=== PATIENT | male | born 1975 | race Caucasian/White ===

== ENCOUNTER 2018-07-05 12:45 | Inpatient (IN) | payer BC, MEDICAID ==
[~2018-07-05] VITALS: Ht 152.4 cm; Wt 90.7 kg
[2018-07-05] MEDS ORDERED: FENTANYL PF 100 MCG/2ML ONE (13:03)
[2018-07-05] MEDS ORDERED: VECURONIUM 10 MG ONE (13:03)
[2018-07-05] MEDS ORDERED: SODIUM CHLORIDE 0.9% 1,000 ML IV SCH (13:12)
[2018-07-05] MEDS ORDERED: POLYETHYLENE GLYCOL 17 GM PACKET PO PRN (13:30)
[2018-07-05] MEDS ORDERED: NOREPINEPHRINE 4 MG in SODIUM CHLORIDE 0.9% 246 ML IV PRN ×2 (13:30→14:00)
[2018-07-05] MEDS ORDERED: VANCOMYCIN PER PHARMACY MC PRN (13:30)
[2018-07-05] MEDS ORDERED: VASOPRESSIN 100 UNIT in SODIUM CHLORIDE 0.9% 495 ML IV PRN (13:30)
[2018-07-05] MEDS ORDERED: PLEASE ENTER HEIGHT AND WEIGHT MC SCH (13:30)
[2018-07-05] MEDS ORDERED: SODIUM CHLORIDE FLUSH 10ML SYR IVF ONE (13:30)
[2018-07-05] MEDS ORDERED: PIPERACILLIN/TAZO/PMX 3.375GM 50 ML IV SCH (13:30)
[2018-07-05] MEDS ORDERED: ONDANSETRON 2MG/ML, 2ML IVPush PRN (13:30)
[2018-07-05] MEDS ORDERED: PLEASE ENTER ALLERGIES MC SCH (13:30)
[2018-07-05] MEDS ORDERED: DOCUSATE 100 MG CAPSULE PO PRN (13:30)
[2018-07-05] MEDS ORDERED: SODIUM CHLORIDE 0.9% 1,000ML IVBOLUS ONE (13:30)
[2018-07-05 13:50] LABS: MEAN CORPUSCULAR HEMOGLOBIN 30.7 pg (27.5-34.5); MEAN CORPUSCULAR HGB CONC 33.1 g/dL (33.2-36.2); MEAN CORPUSCULAR VOLUME 92.6 fL (81-97); MEAN PLATELET VOLUME 7.6 fL (7.4-10.4); PLATELET COUNT 250 x10^3/uL (130-400); RED BLOOD COUNT 5.17 x10^6/uL (4.38-5.82); RED CELL DISTRIBUTION WIDTH 15.8 % (9.4-14.8)
[2018-07-05 13:51] LABS: MD YES
[2018-07-05 13:57] LABS: INTERNATIONAL NORMALIZED RATIO 1.07 (0.93-1.1); PROTHROMBIN TIME 11.3 Seconds (9.6-11.5)
[2018-07-05 14:02] LABS: ALANINE AMINOTRANSFERASE 52 U/L (12-78); ALBUMIN 2.6 g/dL (3.4-5.0); ANION GAP 19 mmol/L (5-15); CALCIUM 8.7 mg/dL (8.5-10.1); CHLORIDE 98 mmol/L (98-107); CREATININE 1.55 mg/dL (0.7-1.3)
[2018-07-05 14:06] LABS: ALKALINE PHOSPHATASE 90 U/L (45-117); BILIRUBIN,TOTAL 0.5 mg/dL (0.2-1.0); TROPONIN I 0.075 ng/mL (0.000-0.045)
[2018-07-05 14:28] LABS: ANISOCYTOSIS 1+; BAND#(MANUAL) 2.55 x10^3/uL; BANDS%(MANUAL) 6 % (0-7); LYMPHS% (MANUAL) 4 % (22-44); MONOS#(MANUAL) 0.85 x10^3/uL (0.3-2.7); MONOS% (MANUAL) 2 % (2-9); POLYCHROMASIA 1+; SEGS% (MANUAL) 88 % (42-75); TOXIC GRAN 1+
[2018-07-05 14:29] LABS: MICROSCOPIC INDICATED
[2018-07-05 14:30] LABS: <PLATELET ESTIMATE> ADEQUATE; <PLT MORPHOLOGY> NORMAL PLT MORPH
[2018-07-05] MEDS ORDERED: FENTANYL PF 100 MCG/2ML IVPush ONE ×2 (14:30→16:30)
[2018-07-05] MEDS ORDERED: VECURONIUM 10 MG IVPush ONE (14:30)
[2018-07-05 14:39] LABS: AMPHETAMINE SCREEN, URINE Negative (Negative); BARBITURATE SCREEN, URINE Negative (Negative); BENZODIAZEPINE SCREEN, URINE Negative (Negative); CANNABINOID SCREEN, URINE Negative (Negative); COCAINE SCREEN, URINE Negative (Negative); METHADONE SCREEN, URINE Negative (Negative); OPIATE SCREEN, URINE Negative (Negative)
[2018-07-05 14:40] LABS: RAPID INFLUENZA A Negative (Negative); RAPID INFLUENZA B Negative (Negative)
[2018-07-05 14:41] LABS: CULTURE INDICATED? YES
[2018-07-05] MEDS ORDERED: PIPERACILLIN/TAZO/PMX 3.375GM 50 ML ONE (15:13)
[2018-07-05] MEDS ORDERED: CEFTRIAXONE PMX 2GM/50ML 50 ML ONE (15:19)
[2018-07-05] MEDS ORDERED: CEFTRIAXONE PMX 2GM/50ML 50 ML IV SCH (15:30)
[2018-07-05] MEDS ORDERED: PROPOFOL 100 ML IV ONE (15:33)
[2018-07-05] MEDS ORDERED: SODIUM CHLORIDE 0.9% 1,000 ML IV ONE (16:26)
[2018-07-05] MEDS ORDERED: ACYCLOVIR 1,000 MG in SODIUM CHLORIDE 0.9% 250 ML IV SCH (16:30)
[2018-07-05] MEDS ORDERED: PROPOFOL 100 ML IV SCH (16:30)
[2018-07-05] MEDS ORDERED: LIDOCAINE-MPF 1%, 5ML ONE (16:41)
[2018-07-05] MEDS ORDERED: PROPOFOL 100 ML IV PRN (16:59)
[2018-07-05] MEDS ORDERED: LIDOCAINE-MPF 1%, 2ML ENDO PRN (17:00)
[2018-07-05] MEDS ORDERED: VANCOMYCIN 1,800 MG in SODIUM CHLORIDE 0.9% 250 ML IV SCH (17:00)
[2018-07-05] MEDS ORDERED: PHARMACOKINETIC CONSULTATION MC ONE (17:00)
[2018-07-05] MEDS ORDERED: PHARMACOKINETIC MONITORING MC PRN (17:00)
[2018-07-05] MEDS: ACYCLOVIR 1,000 MG in SODIUM CHLORIDE 0.9% 250 ML IV SCH (17:04)
[2018-07-05] MEDS: MEROPENEM 2 GM in SODIUM CHLORIDE 0.9% 100 ML IV SCH (17:55)
[2018-07-05 18:05] LABS: HCT (SEDRATE) 47.6 % (39.2-51.8)
[2018-07-05 18:26] LABS: GLUCOSE, CSF < 1 mg/dL (40-80)
[2018-07-05] MEDS: LEVETIRACETAM 1,000 MG in SODIUM CHLORIDE 0.9% 100 ML IV SCH (18:49)
[2018-07-05 19:06] LABS: TOTAL PROTEIN,CSF 1666 mg/dL (15-45)
[2018-07-05] MEDS: FAMOTIDINE 20 MG/2 ML IVPush SCH (21:11)
[2018-07-06] MEDS: ACYCLOVIR 1,000 MG in SODIUM CHLORIDE 0.9% 250 ML IV SCH ×2 (01:08→08:41)
[2018-07-06] MEDS ORDERED: ACETAMINOPHEN 650 MG SUPP PR PRN (02:00)
[2018-07-06] MEDS ORDERED: ACETAMINOPHEN 325 MG SUPP PR PRN (02:00)
[2018-07-06] MEDS: MEROPENEM 2 GM in SODIUM CHLORIDE 0.9% 100 ML IV SCH ×2 (02:18→12:48)
[2018-07-06 04:00] VITALS: BP 116/64
[2018-07-06 04:11] LABS: MEAN CORPUSCULAR HEMOGLOBIN 30.9 pg (27.5-34.5); MEAN CORPUSCULAR HGB CONC 33.9 g/dL (33.2-36.2); MEAN CORPUSCULAR VOLUME 91.1 fL (81-97); MEAN PLATELET VOLUME 7.5 fL (7.4-10.4); PLATELET COUNT 242 x10^3/uL (130-400); RED BLOOD COUNT 4.95 x10^6/uL (4.38-5.82); RED CELL DISTRIBUTION WIDTH 16.6 % (9.4-14.8)
[2018-07-06 04:25] LABS: ALANINE AMINOTRANSFERASE 39 U/L (12-78); ALBUMIN 2.4 g/dL (3.4-5.0); ANION GAP 12 mmol/L (5-15); CALCIUM 8.6 mg/dL (8.5-10.1); CHLORIDE 107 mmol/L (98-107); CREATININE 1.21 mg/dL (0.7-1.3); MD YES
[2018-07-06 04:27] LABS: ALKALINE PHOSPHATASE 88 U/L (45-117); BILIRUBIN,TOTAL 0.8 mg/dL (0.2-1.0)
[2018-07-06 04:31] LABS: ANISOCYTOSIS 1+; BAND#(MANUAL) 0.39 x10^3/uL; BANDS%(MANUAL) 1 % (0-7); LYMPH#(MANUAL) 1.55 x10^3/uL (1-3.4); LYMPHS% (MANUAL) 4 % (22-44); MONOS#(MANUAL) 1.94 x10^3/uL (0.3-2.7); MONOS% (MANUAL) 5 % (2-9); POLYCHROMASIA 1+; REACTIVE LYMPHS # (MANUAL) 0.39 x10^3/uL (0-0); REACTIVE LYMPHS % (MANUAL) 1 % (0-0); SEG#(MANUAL) 34.44 x10^3/uL (1.8-6.8); SEGS% (MANUAL) 89 % (42-75)
[2018-07-06 04:32] LABS: <PLATELET ESTIMATE> ADEQUATE; <PLT MORPHOLOGY> NORMAL PLT MORPH; TOXIC GRAN 1+
[2018-07-06] MEDS ORDERED: SODIUM CHLORIDE 0.9% 1,000ML IVBOLUS ONE (05:00)
[2018-07-06] MEDS: LEVETIRACETAM 1,000 MG in SODIUM CHLORIDE 0.9% 100 ML IV SCH (05:03)
[2018-07-06] MEDS: SODIUM CHLORIDE 0.9% 1,000 ML IV SCH ×2 (05:13→11:40)
[2018-07-06] MEDS ORDERED: POTASSIUM CHLORIDE 10% 40 MEQ/30 ML UDC PO ONE (09:00)
[2018-07-06 09:31] LABS: TROPONIN I 0.134 ng/mL (0.000-0.045)
[2018-07-06] MEDS ORDERED: VANCOMYCIN 1,900 MG in SODIUM CHLORIDE 0.9% 250 ML IV SCH (10:00)
[2018-07-06] MEDS ORDERED: NOREPINEPHRINE 4 MG in SODIUM CHLORIDE 0.9% 246 ML IV PRN (10:30)
[2018-07-06] MEDS ORDERED: GADOBUTROL 10 MMOL/10 ML PFS ONE (10:50)
[2018-07-06] MEDS ORDERED: MANNITOL PMX 20% 500 ML IV ONE (11:00)
[2018-07-06] MEDS: FAMOTIDINE 20 MG/2 ML IVPush SCH (11:16)
[2018-07-06 13:21] LABS: TROPONIN I 0.121 ng/mL (0.000-0.045)
[2018-07-06] MEDS ORDERED: LORazepam 2 MG/ML, 1ML ONE (14:12)
[2018-07-06] MEDS ORDERED: MORPHINE SULFATE 4 MG/ML, 1ML ONE ×2 (14:12→14:13)
[2018-07-06] MEDS ORDERED: morphine SULFATE 10 MG/ML, 1ML IV PRN (14:30)
[2018-07-06] MEDS ORDERED: morphine SULFATE 10 MG/ML, 1ML IV ONE (14:30)
[2018-07-06] MEDS ORDERED: LORazepam 2 MG/ML, 1ML IV PRN (14:30)
[2018-07-06] MEDS ORDERED: ATROPINE OPHTH SOLN 1%, 2ML PO PRN (14:30)
== END 2018-07-06 14:33 | disposition expired | DRG 871 ==
LOC: ED 14:46 → EDIP 14:47 → ICU 16:53
PROVIDERS: ADMIT Hospitalist; ATTEND Hospitalist
PROC: 02HV33Z Insertion of Infusion Device into Superior Vena Cava, Percutaneous Approach (ICD-10-PCS; principal; 2018-07-05)
PROC: B548ZZA Ultrasonography of Superior Vena Cava, Guidance (ICD-10-PCS; 2018-07-05)
PROC: 009U3ZX Drainage of Spinal Canal, Percutaneous Approach, Diagnostic (ICD-10-PCS; 2018-07-05)
PROC: B01B1ZZ Fluoroscopy of Spinal Cord using Low Osmolar Contrast (ICD-10-PCS; 2018-07-05)
PROC: 5A1945Z Respiratory Ventilation, 24-96 Consecutive Hours (ICD-10-PCS; 2018-07-05)
PROC: 0BH17EZ Insertion of Endotracheal Airway into Trachea, Via Natural or Artificial Opening (ICD-10-PCS; 2018-07-05)
PROC: 0T9B70Z Drainage of Bladder with Drainage Device, Via Natural or Artificial Opening (ICD-10-PCS; 2018-07-05)
DX: A41.9 Sepsis, unspecified organism (principal); G00.9 Bacterial meningitis, unspecified; G93.5 Compression of brain; G93.6 Cerebral edema; J96.00 Acute respiratory failure, unspecified whether with hypoxia or hypercapnia; R65.21 Severe sepsis with septic shock; E87.2 Acidosis; N17.9 Acute kidney failure, unspecified; N39.0 Urinary tract infection, site not specified; Q21.0 Ventricular septal defect; Z99.11 Dependence on respirator [ventilator] status; G40.409 Other generalized epilepsy and epileptic syndromes, not intractable, without status epilepticus; G93.2 Benign intracranial hypertension; I10 Essential (primary) hypertension; J44.9 Chronic obstructive pulmonary disease, unspecified; Q90.9 Down syndrome, unspecified; Z51.5 Encounter for palliative care; Z80.8 Family history of malignant neoplasm of other organs or systems; Z87.01 Personal history of pneumonia (recurrent); Z83.3 Family history of diabetes mellitus
CPT/HCPCS: 36415; 36600; 77002; 82040; 82042; 82805; 86592; 87400; 87449; 87806; J3490; 36556; 51702; 62270; 70450; 70496; 70553; 71045; 71275; 74177; 80053; 80307; 81001; 82550; 82784; 82803; 82945; 83605; 83615; 83735; 83873; 84100; 84157; 84478; 84484; 85025; 85610; 85651; 86140; 86480; 86635; 86645; 86695; 86696; 86738; 86762; 86777; 86778; 87040; 87070; 87077; 87081; 87086; 87103; 87186; 87205; 87252; 87255; 87798; 87899; 89051; 93005; 93306; 94002; 94003; 95819; 96361; 96374; 96375; A9585; G0378; J0133; J0696; J1953; J2185; J2543; J2704; J3010; J3370; G0475; J2270; J7030; J7040; J7050